=== PATIENT | female | born 1970 | race Caucasian/White ===

== ENCOUNTER → 2016-10-19 | Outpatient (CLI) | payer BC, OTHER ==
[~2016-10-19] MED LIST: AMT10 PO; GLAT1INJ INJ; IBUP-1050 PO; SUMA50TA15 PO
--- NOTE | 2016-10-19 12:15 | DIAGNOSTIC IMAGING REPORT ---
RIGHT ANKLE MIN 3 VIEWS ROUTINE CLINICAL HISTORY: Right ankle pain status post trauma COMPARISON: 10/09/2016 DISCUSSION: There is a nondisplaced fracture involving the posterior malleolus of the distal tibia. This was not visualized the prior study. No fibular fractures are visualized. The ankle mortise appears intact. There is an Achilles insertional spur. IMPRESSION: Nondisplaced fracture involving the posterior malleolus. This fracture was not visualized on the prior study even in retrospect. Electronically signed by: Seymour Medeiros M.D. 10/19/2016 12:13 PM Dictated Date/Time: 10/19/2016 12:11 PM
== END | disposition home or self-care (01) ==
LOC: C.RAD1850 12:02
PROVIDERS: ATTEND Family Medicine
DX: S82.54XA Nondisplaced fracture of medial malleolus of right tibia, initial encounter for closed fracture (principal); W00.9XXA Unspecified fall due to ice and snow, initial encounter

== ENCOUNTER → 2017-06-21 | Outpatient (CLI) | payer BC, OTHER | END | disposition home or self-care (01) | LOC: C.PAPS 11:51 | PROVIDERS: ATTEND Obstetrics & Gynecology | DX: Z01.419 Encounter for gynecological examination (general) (routine) without abnormal findings (principal) ==

== ENCOUNTER → 2017-08-03 | Outpatient (CLI) | payer BC, OTHER ==
--- NOTE | 2017-08-03 15:15 | MAMMOGRAPHY REPORT ---
BILATERAL DIGITAL SCREENING MAMMOGRAM TOMOSYNTHESIS WITH CAD: 08/03/2017 CLINICAL HISTORY: Routine screening. Patient has no complaints. TECHNIQUE: Breast tomosynthesis in addition to standard 2D mammography was performed. Current study was also evaluated with a Computer Aided Detection (CAD) system. COMPARISON: Comparison is made to exams dated: 07/30/2016 mammogram, 07/02/2015 mammogram, 03/13/2014 m ammogram - [facility], 07/22/2012 mammogram, and 07/14/2011 mammogram - [facility]. BREAST COMPOSITION: The tissue of both breasts is heterogeneously dense, which may obscure small mas ses. FINDINGS: The parenchymal pattern is unchanged. No developing mass, architectural distortion or clus ter of suspicious microcalcifications is seen in either breast. IMPRESSION: ACR BI-RADS CATEGORY 2: BENIGN There is no mammographic evidence of malignancy. A 1 year screening mammogram is recommended. The pa tient will receive written notification of the results. Approximately 10% of breast cancers are not detected with mammography. A negative mammographic report should not delay biopsy if a clinically suggestive mass is present. Christie Cooley M.D. ay/:08/03/2017 14:43:15 Gluer Machine Setup Operator: Cady ROWLEY(R)(M), [facility] letter sent: Normal 1/2 BI-RADS Code: ACR BI-RADS Category 2: Benign
== END | disposition home or self-care (01) ==
LOC: C.MAMM 08:12
PROVIDERS: ATTEND Obstetrics & Gynecology
DX: Z12.31 Encounter for screening mammogram for malignant neoplasm of breast (principal)

== ENCOUNTER → 2018-01-28 | Outpatient (CLI) | payer BC, OTHER ==
[~2018-01-28] MED LIST changes: +GADAVIST IV PRN
--- NOTE | 2018-01-28 09:46 | DIAGNOSTIC IMAGING REPORT ---
MRI OF THE BRAIN WITHOUT AND WITH IV CONTRAST CLINICAL HISTORY: Demyelinating disease COMPARISON STUDY: 12/16/2015 TECHNIQUE: MRI of the brain was performed from the vertex to the skull base utilizing various T1 and T2 weighted sequences. Following the IV administration of 6 mL of Gadavist contrast, additional enhanced images were obtained. FINDINGS: Sagittal T1, axial diffusion, proton density and T2 weighted axial, coronal FLAIR, and pre and post axial T1-weighted images were acquired. These were supplemented with post gadolinium coronal T1 weighted images. No intra or extra-axial mass lesions are visualized. Axial diffusion-weighted images reveal no evidence of acute or subacute infarction. There is no evidence of ventricular dilatation. Proton density T2-weighted and FLAIR images reveal persistent foci of increased T2 and FLAIR signal within the white matter, similar to the preceding study. There are no abnormal flow voids. There is no evidence of pathologic enhancement. IMPRESSION: 1. No significant change from the prior December 2015 study 2. Multiple white matter foci of increased T2 signal, consistent with the clinical history of demyelination disease. These remain stable 3. No evidence of pathologic enhancement to indicate active demyelination Electronically signed by: Seymour Medeiros M.D. 01/28/2018 9:45 AM Dictated Date/Time: 01/28/2018 9:40 AM
--- NOTE | 2018-01-28 09:49 | DIAGNOSTIC IMAGING REPORT ---
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 TECHNIQUE: Multisequence, multiplanar MR imaging of the cervical spine was performed before and after the administration of intravenous contrast. IV contrast: 6 mL of Gadavist. COMPARISON: 12/16/2015. FINDINGS: Localizer images: Unremarkable. Straightening of normal cervical lordosis likely positional and related to multilevel degenerative change. Vertebral bodies maintain normal height, alignment, and bone marrow signal intensity. Intervertebral disc height loss evident at C5-6 stable to slightly increased from prior. Disc osteophyte complexes noted at every level though most prominently at C5-6 and C6-7. At these levels, effacement of the ventral thecal sac results without evidence of contouring or flattening of the spinal cord. No significant neural foraminal narrowing at any of the levels. Cervical spinal cord demonstrates normal morphology. No abnormal enhancements in the spinal cord. Allowing for motion artifact, patchy abnormal spinal cord signal intensity is only suggested on sagittal STIR imaging. Axial and sagittal T2-weighted imaging reveal only vague suggestion of multifocal T2 hyperintensity. Paraspinal soft tissues within normal limits. IMPRESSION: 1. Only vague signal abnormality is evident within the spinal cord in a patchy distribution. No overt progression of disease. No abnormal enhancement to suggest active demyelination. Future examinations should be performed with axial MERGE sequence to allow better sensitivity for cord lesions. 2. Focal degenerative changes at C5-6 and C6-7. No evidence of significant spinal canal or neural foraminal narrowing. Electronically signed by: Sohail Webb M.D. 01/28/2018 9:48 AM Dictated Date/Time: 01/28/2018 9:40 AM
== END | disposition home or self-care (01) ==
LOC: C.MRI 07:41
PROVIDERS: ATTEND Psychiatry & Neurology Neurology
DX: G37.9 Demyelinating disease of central nervous system, unspecified (principal)

== ENCOUNTER → 2018-02-01 | Outpatient (CLI) | payer BC, OTHER ==
--- NOTE | 2018-02-01 16:12 | DIAGNOSTIC IMAGING REPORT ---
MRI OF THE THORACIC SPINE WITH AND WITHOUT CONTRAST CLINICAL HISTORY: CLEAN RICE BROKER demyelination. Progression of multiple sclerosis. COMPARISON STUDY: Thoracic spine MRI December 25, 2015. TECHNIQUE: Utilizing a 1.5 Debi magnet, multiplanar, multiecho imaging of the thoracic spine was performed pre and postcontrast administration. Injection of 6.5 cc of Gadavist IV was uneventful. FINDINGS: Alignment of the thoracic spine is anatomic. Vertebral body heights are maintained. There is no suspicious marrow replacement. There is no intracanalicular mass or fluid collection. There is no abnormal enhancement within the thoracic canal. A 1.1 cm central focus of increased T2 signal at the T7-T8 level is again noted. This has slightly increased in conspicuity since exam of December 25, 2015. There may be a subtle additional T2 hyperintense focus within the cord at the T6-T7 level which was not evident on prior exam. There is no associated enhancement. Paravertebral soft tissues are unremarkable. Central canal and neural foramen are patent. There is minimal disc bulge at the T11-T12 level. IMPRESSION: 1. Slight increase in conspicuity of the T2 hyperintense focus within the central aspect of the cord at the T7-T8 level since exam of December 25, 2015. Second additional focus of demyelination at the T6-T7 level which was not present on prior exam. The findings suggest minimal interval demyelination. 2. No evidence for active demyelination by MRI. Electronically signed by: Mainor Suggs M.D. 02/01/2018 4:11 PM Dictated Date/Time: 02/01/2018 8:40 AM
== END | disposition home or self-care (01) ==
LOC: C.MRI 07:36
PROVIDERS: ATTEND Psychiatry & Neurology Neurology
DX: G37.9 Demyelinating disease of central nervous system, unspecified (principal)

== ENCOUNTER → 2018-02-25 | Outpatient (CLI) | payer BC, OTHER ==
[~2018-02-25] MED LIST changes: -GADAVIST IV PRN
[2018-02-25 13:08] LABS: BLOOD UREA NITROGEN 13 mg/dl (7-18); CALCIUM 8.9 mg/dl (8.5-10.1); CARBON DIOXIDE 28 mmol/L (21-32); CHOLESTEROL 159 mg/dl (0-200); CREATININE 0.97 mg/dl (0.60-1.20); GLUCOSE 93 mg/dl (70-99); LDL CHOLESTEROL CALCULATED 86 mg/dl; POTASSIUM 4.8 mmol/L (3.5-5.1); SODIUM 138 mmol/L (136-145)
== END | disposition home or self-care (01) ==
LOC: C.LABBFT 08:48
PROVIDERS: ATTEND Family Medicine
DX: Z13.220 Encounter for screening for lipoid disorders (principal); Z13.1 Encounter for screening for diabetes mellitus; Z13.6 Encounter for screening for cardiovascular disorders; R53.83 Other fatigue; R22.1 Localized swelling, mass and lump, neck